=== PATIENT | female | born 1995 | race African-American/Black ===

== ENCOUNTER 2020-12-07 05:59 | Inpatient (IN) | payer OTHER ==
[2020-12-07 06:46] LABS: BILIRUBIN NEGATIVE (NEGATIVE); BLOOD NEGATIVE Ery/uL (NEGATIVE); CLARITY CLEAR (CLEAR); COLOR YELLOW (YELLOW); GLUCOSE (U) NORMAL (NORMAL); HGB 12.6 g/dl (12.5-16.0); LEUKOCYTES TRACE Leu/uL (NEGATIVE); MCH 28.9 pg (25.0-31.0); MCHC 34.1 g/dL (32.0-36.0); MCV 84.9 fL (78.0-100.0); MPV 12.1 fL (6.0-9.5); NITRITE NEGATIVE (NEGATIVE); PROTEIN NEGATIVE (NEGATIVE); RBC 4.36 M/uL (4.20-5.40); RDW 13.3 % (11.5-14.0); SPECIFIC GRAVITY 1.025 (1.001-1.030); WBC 6.9 K/uL (4.0-10.5)
[2020-12-07 06:55] LABS: BACTERIA TRACE; SQUAMOUS EPITHELIAL CELLS 20-50
[2020-12-08 05:52] LABS: HCT 36.9 % (37.0-47.0); MCH 28.6 pg (25.0-31.0); MCHC 32.5 g/dL (32.0-36.0); MCV 88.1 fL (78.0-100.0); MPV 12.6 fL (6.0-9.5); RBC 4.19 M/uL (4.20-5.40); RDW 13.5 % (11.5-14.0)
== END 2020-12-09 10:18 | disposition home or self-care (01) | DRG 806 ==
LOC: FOB 05:59
PROVIDERS: Obstetrics & Gynecology; ADMIT Obstetrics & Gynecology
PROC: 10E0XZZ Delivery of Products of Conception, External Approach (ICD-10-PCS; principal; 2020-12-07)
PROC: 10907ZC Drainage of Amniotic Fluid, Therapeutic from Products of Conception, Via Natural or Artificial Opening (ICD-10-PCS; 2020-12-07)
DX: O34.211 Maternal care for low transverse scar from previous cesarean delivery (principal); O99.113 Other diseases of the blood and blood-forming organs and certain disorders involving the immune mechanism complicating pregnancy, third trimester; Z37.0 Single live birth; O99.214 Obesity complicating childbirth; E66.9 Obesity, unspecified; Z3A.39 39 weeks gestation of pregnancy; Z20.822 Contact with and (suspected) exposure to COVID-19; O99.343 Other mental disorders complicating pregnancy, third trimester; F41.8 Other specified anxiety disorders; D69.6 Thrombocytopenia, unspecified
CPT/HCPCS: 36415; 81001; J2300; J7120; U0002